=== PATIENT | male | born 1985 | race Caucasian/White ===

== ENCOUNTER 2018-04-08 23:28 | Emergency (ER) | payer SELFPAY ==
[~2018-04-08] VITALS: Ht 180.3 cm; Wt 74.8 kg
[2018-04-09] MEDS ORDERED: LORAZEPAM 0.5 MG TABLET PO ONE (00:30)
[2018-04-09] MEDS ORDERED: LORAZEPAM 1 MG TABLET ONE (00:30)
[2018-04-09 00:40] VITALS: BP 117/76
--- NOTE | 2018-04-09 00:50 | NUR ---
Patient discharged to home in stable conditon. Written and verbal after care instructions given. Patient verbalizes understanding of instructions. Pt ambulated out of ER in steady gait. All belongings with pt. VSS.
== END 2018-04-09 00:51 | disposition home or self-care (01) ==
LOC: ER 23:30
DX: F41.0 Panic disorder [episodic paroxysmal anxiety] (principal); Z88.0 Allergy status to penicillin
CPT/HCPCS: 99284; A4663

== ENCOUNTER 2018-04-19 21:05 | Emergency (ER) | payer SELFPAY ==
[~2018-04-19] VITALS: Ht 180.3 cm; Wt 68.0 kg
[2018-04-19] MEDS ORDERED: IBUPROFEN 800 MG TABLET PO ONE (21:30)
[2018-04-19] MEDS ORDERED: DIAZEPAM 2 MG TABLET PO ONE (21:30)
[2018-04-19] MEDS ORDERED: IBUPROFEN 800 MG TABLET ONE (21:32)
[2018-04-19] MEDS ORDERED: DIAZEPAM 5 MG TABLET ONE (21:32)
--- NOTE | 2018-04-19 22:21 | NUR ---
Patient discharged to home in stable conditon. Written and verbal after care instructions given. Patient verbalizes understanding of instructions.
[2018-04-19 22:28] VITALS: BP 138/74
== END 2018-04-19 22:29 | disposition home or self-care (01) ==
LOC: ER 21:09
DX: M62.838 Other muscle spasm (principal); Z88.0 Allergy status to penicillin
CPT/HCPCS: 99283; A4663

== ENCOUNTER 2019-02-21 18:09 | Emergency (ER) | payer SELFPAY | END 2019-02-21 18:30 | disposition left against medical advice (07) | LOC: ER 18:09 | DX: Z53.21 Procedure and treatment not carried out due to patient leaving prior to being seen by health care provider (principal) ==

== ENCOUNTER 2020-10-27 17:15 | Emergency (ER) | payer OTHER ==
[~2020-10-27] VITALS: Ht 180.3 cm; Wt 72.6 kg
--- NOTE | 2020-10-27 18:24 | NUR ---
Patient discharged to home in stable condition. Written and verbal after care instructions given. Patient verbalizes understanding of instructions. Stressed follow up or return to ER for worsening s/s.PT WALKS IN STEADY GAIT.
== END 2020-10-27 18:26 | disposition home or self-care (01) ==
LOC: ER 17:15
DX: S16.1XXA Strain of muscle, fascia and tendon at neck level, initial encounter (principal); V78.6XXA Passenger on bus injured in noncollision transport accident in traffic accident, initial encounter; Y92.410 Unspecified street and highway as the place of occurrence of the external cause; S92.345G Nondisplaced fracture of fourth metatarsal bone, left foot, subsequent encounter for fracture with delayed healing; X58.XXXD Exposure to other specified factors, subsequent encounter; Z88.0 Allergy status to penicillin
CPT/HCPCS: 73630; A4663